=== PATIENT | male | born 1935 | race Caucasian/White ===

== ENCOUNTER 2016-06-17 07:20 | Emergency (ER) | payer MEDICARE, OTHER ==
[2016-06-17] MEDS ORDERED: IBUPROFEN 600 MG TABLET PO STA (07:38)
[2016-06-17] MEDS ORDERED: ACETAMINOPHEN 325 MG TABLET PO STA (07:38)
--- NOTE | 2016-06-17 07:39 | ED Physician Documentation ---
PD HPI TRUNK INJURY - Stated complaint Stated Complaint: GLF - Chief complaint Chief Complaint: General - History obtained from History obtained from: Patient - History of Present Illness Location: Left chest Type of injury: Fall Timing - onset: Last night (last evening, slid on ground and fell into 2x12 beam , striking left anterolateral ribs. Pain locally in ribs with movement, palpation and moderate to deep breathing. Denies injury to head nor abdomen. Has local briusing/abrasion of chestwall.) Timing - duration: Days (1/2) Timing - details: Abrupt onset, Still present Quality: Pain, Sharp Improved by: Rest Worsened by: Moving, Palpating, Other (moderate to deep breathing) Associated symtptoms: Discoloration (local bruising today). No: Weakness, Numbness Where injury occured: Work Similar symptoms before: Has not had sx before Recently seen: Not recently seen Review of Systems Cardiac: denies: Palpitations, Pedal edema, Calf pain Respiratory: denies: Dyspnea, Cough, Wheezing Neurologic: denies: Headache, Head injury PD PAST MEDICAL HISTORY - Past Medical History Endocrine/Autoimmune: HyPOthyroidism GI: GERD : Benign prostate hypertrophy - Past Surgical History Past Surgical History: Yes - Present Medications Home Medications: Ambulatory Orders Medication Instructions Recorded Confirmed Levothyroxine [Synthroid] 112 mcg PO DAILY 06/27/14 06/17/16 Omeprazole 20 mg PO DAILY 06/27/14 06/17/16 Sildenafil Citrate [Viagra] 100 mg PO DAILY 06/27/14 06/17/16 Tramadol HCl 50 mg PO Q6H PRN #20 tablet 06/17/16 - Allergies Allergies/Adverse Reactions: Allergies Allergy/AdvReac Type Severity Reaction Status Date / Time No Known Drug Allergies Allergy Verified 06/17/16 07:35 - Social History Does the pt smoke?: No Smoking Status: Never smoker Does the pt drink ETOH?: Yes Does the pt have substance abuse?: No - Immunizations Immunizations are current?: No Immunizations: TDAP current <10years, Other immun not current - POLST Patient has POLST: Yes PD ED PE NORMAL - Vitals Vital signs reviewed: Yes - General General: Alert and oriented X 3, Well developed/nourished, Other (unlabored breathing, but is avoiding deep breaths and is minimizing torso/left shoulder movement. ) - HEENT HEENT: Atraumatic - Neck Neck: Supple, no meningeal sign, No bony TTP, No adenopathy - Cardiac Cardiac: RRR, No murmur - Respiratory Respiratory: Clear bilaterally, Other (left chestwall with linear horizontal abrasion/contusion, with local tenderness there (about rib 9-10) and above that. Not tender below that. Mild bone crepitance felt with palpation c/w likely rib fx. ) - Abdomen Abdomen: Soft, Non tender - Derm Derm: Normal color, Warm and dry - Neuro Neuro: Alert and oriented X 3, No motor deficit, Normal speech Results - Vitals Vitals: Vital Signs - 24 hr 06/17/16 07:25 Temperature 36.5 C Heart Rate 64 Respiratory 18 Rate Blood Pressure 134/81 H O2 Saturation 100 Oxygen O2 Source Room air - Rads (name of study) chest with ribs Radiology: Prelim report reviewed, EMP read contemporaneously (no PTX nor effusion; 2 broken ribs nondisplaced left side. ) Departure - Departure Disposition: 01 Home, Self Care Clinical Impression: Fall from slip, trip, or stumble Qualifiers: Encounter type: initial encounter Qualified Code(s): W01.0XXA - Fall on same level from slipping, tripping and stumbling without subsequent striking against object, initial encounter Rib fractures Qualifiers: Encounter type: initial encounter Rib fracture type: multiple ribs Fracture type: closed Laterality: left Qualified Code(s): S22.42XA - Multiple fractures of ribs, left side, initial encounter for closed fracture Condition: Stable Record reviewed to determine appropriate education?: Yes Instructions: ED Fx Rib Follow-Up: Wild Barrett MD [Primary Care Provider] - Prescriptions: Tramadol HCl 50 mg PO Q6H PRN #20 tablet PRN Reason: Pain Comments: Limit upper body exercise for heavy lifting, push/pull, etc for the first 2 weeks, then progress activity as able. Purposeful deep breathing a few times daily. Ibuprofen or Naproxen 2-3 times daily for 1-2 weeks. Add Tylenol and/or Tramadol as needed for pains (I know you did not want too strong of a pain medication). This will take about 4-5 weeks to fully heal.
[2016-06-17] MEDS ORDERED: ACETAMINOPHEN 325 MG TABLET PO ONE (07:43)
[2016-06-17] MEDS ORDERED: IBUPROFEN 600 MG TABLET PO ONE (07:44)
[2016-06-17 08:55] VITALS: BP 123/71
--- NOTE | 2016-06-17 09:07 | XRAY Preliminary Report ---
Exam: XR Ribs w/PA Chest LT Impression: Mildly displaced left seventh and eighth rib fractures. [facility] SITE ID: [id number]
--- NOTE | 2016-06-17 09:10 | XRAY Report ---
EXAM: LEFT RIB RADIOGRAPHY EXAM DATE: 06/17/2016 08:18 AM. CLINICAL HISTORY: Fell and struck left ribs; likely rib fxs. COMPARISON: None. TECHNIQUE: 1 view of the chest and 2 views of the ribs. FINDINGS: Mildly displaced left seventh and eighth rib fractures are noted. The heart is not enlarged. There is no pleural effusion or pneumothorax. There is atherosclerosis of the aorta. Degenerative changes of the thoracic spine are noted. Impression: Mildly displaced left seventh and eighth rib fractures. [facility] Referring Provider Line: [phone] SITE ID: [id number]
== END 2016-06-17 08:51 | disposition home or self-care (01) ==
LOC: ED 07:20
DX: S22.42XA Multiple fractures of ribs, left side, initial encounter for closed fracture (principal); S20.212A Contusion of left front wall of thorax, initial encounter; S20.312A Abrasion of left front wall of thorax, initial encounter; W01.198A Fall on same level from slipping, tripping and stumbling with subsequent striking against other object, initial encounter; E03.9 Hypothyroidism, unspecified; K21.9 Gastro-esophageal reflux disease without esophagitis; N40.0 Benign prostatic hyperplasia without lower urinary tract symptoms
CPT/HCPCS: 99283

== ENCOUNTER 2023-07-04 12:29 | Outpatient (CLI) | payer MEDICARE, OTHER ==
[2023-07-04 14:44] LABS: HCT - HEMATOCRIT 40.2 % (42.0-52.0); HGB - HEMOGLOBIN 12.8 g/dL (14.0-18.0); MEAN CORPUSCULAR HEMOGLOBIN 30.5 pg (27.0-31.0); MEAN CORPUSCULAR HGB CONC 31.8 g/dL (32.0-36.0); MEAN CORPUSCULAR VOLUME 95.7 fL (80.0-94.0); MEAN PLATELET VOLUME 11.1 fL (7.4-11.4); RED BLOOD COUNT 4.2 10^6/uL (4.70-6.10); RED CELL DISTRIBUTION WIDTH 14.1 % (12.0-15.0); WHITE BLOOD COUNT 5.9 x10^3/uL (4.8-10.8)
[2023-07-04 15:23] LABS: THYROID STIMULATING HORMONE 0.27 uIU/mL (0.34-5.60)
[2023-07-04 15:51] LABS: ALBUMIN/GLOBULIN RATIO 1.4 (1.0-2.2); ALKALINE PHOSPHATASE 75 IU/L (42-121); ALT ALANINE AMINOTRANSFERASE 22 IU/L (10-60); AST ASPARTATE AMINOTRANSFERASE 20 IU/L (10-42); BILIRUBIN,TOTAL 0.5 mg/dL (0.2-1.0); BUN - BLOOD UREA NITROGEN 25 mg/dL (6-20); CALCIUM 9.6 mg/dL (8.5-10.3); CARBON DIOXIDE - CO2 27 mmol/L (21-32); CHLORIDE 108 mmol/L (101-111); CHOL/HDL RATIO 2.2 (<5.0); CHOLESTEROL 146 mg/dL; CREATININE 0.9 mg/dL (0.6-1.3); GFR - MDRD 80 (>89); GLUCOSE 80 mg/dL (74-104); HDL CHOLESTEROL 65 mg/dL; LDL CHOLESTEROL,CALCULATED 63 mg/dL; LDL CHOLESTEROL,DIRECT 76 mg/dL (75-193); POTASSIUM 4.2 mmol/L (3.5-4.5); SODIUM 141 mmol/L (135-145); TOTAL PROTEIN 6.8 g/dL (6.4-8.9); TRIGLYCERIDES 92 mg/dL (48-352); VLDL CHOLESTEROL 18 mg/dL
[2023-07-04 20:52] LABS: ESTIMATED AVERAGE GLUCOSE 120 mg/dL (70-100); HEMOGLOBIN A1c% 5.8 % (4.27-6.07)
== END 2023-07-04 12:30 | disposition home or self-care (01) ==
LOC: LAB.S 12:29
DX: I10 Essential (primary) hypertension (principal); R73.9 Hyperglycemia, unspecified; E78.00 Pure hypercholesterolemia, unspecified; E03.9 Hypothyroidism, unspecified; Z12.5 Encounter for screening for malignant neoplasm of prostate
CPT/HCPCS: 36415; 80053; 80061; 83036; 83721; 84439; 84443; 85027; G0103; 84153